=== PATIENT | male | born 1975 | race Two or more races ===

== ENCOUNTER 2023-11-07 19:12 | Emergency (ER) | payer OTHER ==
[~2023-11-07] VITALS: Ht 167.6 cm; Wt 72.7 kg
[2023-11-07 19:36] VITALS: TEMP 97.7
[2023-11-07 22:38] VITALS: BP 120/76; PULSE 57; RESP 16
[2023-11-07] MEDS: HYDROCODONE/ACETAMINOPHEN 5-325 MG TABLET PO ONE (23:45)
[2023-11-08] MEDS: CEPHALEXIN MONOHYDRATE 500 MG CAPSULE PO ONE (02:04)
[2023-11-08] MEDS: PERTUSS(ACELL),DIPH,TET/PF 0.5 ML SYRINGE [ADULT] IM. ONE (02:05)
== END 2023-11-08 02:15 | disposition home or self-care (01) ==
LOC: EMS 19:12
DX: S01.131A Puncture wound without foreign body of right eyelid and periocular area, initial encounter (principal); S11.93XA Puncture wound without foreign body of unspecified part of neck, initial encounter; S71.031A Puncture wound without foreign body, right hip, initial encounter; S41.131A Puncture wound without foreign body of right upper arm, initial encounter; X58.XXXA Exposure to other specified factors, initial encounter; Y93.89 Activity, other specified; Y92.89 Other specified places as the place of occurrence of the external cause; Y99.8 Other external cause status
CPT/HCPCS: 70450; 70486; 70490; 71250; 72192; 74150; 90471; 90715; 99285